=== PATIENT | male | born 1980 | race Caucasian/White ===

== ENCOUNTER → 2017-04-30 | Outpatient (REF) ==
--- NOTE | 2017-04-30 09:27 | Diagnostic Imaging Report ---
PA and lateral views of the chest Indication: Annual exam for employment Findings: The lungs are clear. The heart size is normal. There is no effusion or pneumothorax The mediastinum and alice appear unremarkable. Impression: Unremarkable study. Dictated by: Dictated on workstation # [id number]
== END | disposition home or self-care (01) ==
LOC: OCC 09:15
PROVIDERS: ATTEND Nurse Practitioner Family
CPT/HCPCS: 71020